=== PATIENT | female | born 1995 | race Caucasian/White ===

== ENCOUNTER 2021-03-22 21:11 | Outpatient (CLI) | payer OTHER | END 2021-03-22 22:36 | disposition home or self-care (01) | LOC: EDBD 21:11 → GENOP 21:11 | DX: O62.8 Other abnormalities of forces of labor (principal); Z3A.20 20 weeks gestation of pregnancy | CPT/HCPCS: 81001; G0463 ==

== ENCOUNTER 2021-08-01 23:05 | Outpatient (CLI) | payer OTHER ==
[2021-08-03] MEDS ORDERED: BUSPAR 10MG10 MG PO (18:32)
[2021-08-03] MEDS ORDERED: WELLBUTRIN 75 M75 MG PO (18:32)
== END 2021-08-02 03:51 | disposition home or self-care (01) ==
LOC: GENOP 23:05
DX: Z04.3 Encounter for examination and observation following other accident (principal); O99.891 Other specified diseases and conditions complicating pregnancy; R10.9 Unspecified abdominal pain; Z3A.38 38 weeks gestation of pregnancy
CPT/HCPCS: 59025; 81001; J7120

== ENCOUNTER 2021-08-03 17:02 | Inpatient (IN) | payer OTHER ==
[~2021-08-03] VITALS: Ht 152.4 cm; Wt 82.6 kg
[2021-08-03 17:48] LABS: HEMOGLOBIN 9.8 gm/dl (12.3-15.3); RED BLOOD COUNT 3.46 M/UL (4.00-5.10); WHITE BLOOD COUNT 6.1 K/UL (4.5-11.0)
[2021-08-03] MEDS ORDERED: BUSPAR 10MG10 MG PO (18:32)
[2021-08-03] MEDS ORDERED: WELLBUTRIN 75 M75 MG PO (18:32)
[2021-08-04] MEDS ORDERED: IBUPROFEN600 MG PO (13:12)
[2021-08-04] MEDS ORDERED: DOCUSATE SODIU100 MG PO (13:12)
[2021-08-05 05:02] LABS: HEMOGLOBIN 10.3 gm/dl (12.3-15.3)
== END 2021-08-05 16:32 | disposition home or self-care (01) | DRG 807 ==
LOC: GENOP 17:02 → OB 17:16
PROVIDERS: Obstetrics & Gynecology; ADMIT Obstetrics & Gynecology
PROC: 10E0XZZ Delivery of Products of Conception, External Approach (ICD-10-PCS; principal; 2021-08-03)
PROC: 3E033VJ Introduction of Other Hormone into Peripheral Vein, Percutaneous Approach (ICD-10-PCS; 2021-08-03)
PROC: 0U7C7ZZ Dilation of Cervix, Via Natural or Artificial Opening (ICD-10-PCS; 2021-08-03)
PROC: 10907ZC Drainage of Amniotic Fluid, Therapeutic from Products of Conception, Via Natural or Artificial Opening (ICD-10-PCS; 2021-08-03)
PROC: 4A1HXCZ Monitoring of Products of Conception, Cardiac Rate, External Approach (ICD-10-PCS; 2021-08-03)
DX: O99.354 Diseases of the nervous system complicating childbirth (principal); Z37.0 Single live birth; O99.344 Other mental disorders complicating childbirth; F41.9 Anxiety disorder, unspecified; F32.9 Major depressive disorder, single episode, unspecified; Z20.822 Contact with and (suspected) exposure to COVID-19; Z3A.39 39 weeks gestation of pregnancy; Z98.890 Other specified postprocedural states
CPT/HCPCS: 36415; 51702; 59025; 81001; 85014; 85018; 85025; 90715; J2590; J7120; U0003

== ENCOUNTER → 2021-11-04 | Outpatient (CLI) | payer OTHER ==
[~2021-11-04] MED LIST: BUSPAR 10MG10 MG PO; DOCUSATE SODIU100 MG PO; IBUPROFEN600 MG PO; WELLBUTRIN 75 M75 MG PO
== END ==
LOC: EXRD 10-27 14:00
DX: E04.9 Nontoxic goiter, unspecified (principal); E04.1 Nontoxic single thyroid nodule
CPT/HCPCS: 76536